=== PATIENT | female | born 1955 | race Caucasian/White ===

== ENCOUNTER 2018-11-10 06:11 | Inpatient (IN) | payer OTHER ==
[~2018-11-10] VITALS: Ht 160 cm; Wt 70.5 kg
[~2018-11-10 06:11] MED LIST: RINGERS SOLUTION,LACTATED 1,000 ML IV ONE
[2018-11-10] MEDS ORDERED: NAPR250T4 PO (07:30)
[2018-11-10] MEDS ORDERED: C,E,1CAP2 PO (07:30)
[2018-11-10] MEDS ORDERED: GLUC500T12 PO (07:30)
[2018-11-10] MEDS ORDERED: RINGERS SOLUTION,LACTATED 1,000 ML IV ONE ×2 (07:30→11:19)
[2018-11-10] MEDS ORDERED: BUPIVACAINE LIPOSOME/PF 1.3%-13.3MG/ML SUSPENSION 20 ML VIAL INJ ONE (09:00)
[2018-11-10] MEDS ORDERED: ONDANSETRON HCL 4 MG/2 ML VIAL IVP PRN ×3 (09:00→18:00)
[2018-11-10] MEDS ORDERED: TRANEXAMIC ACID 1,000 MG in DEXTROSE 5%-WATER 50 ML IV ONE (09:00)
[2018-11-10] MEDS ORDERED: HYDROmorphone 2 MG/ML SYRINGE IVP PRN (09:00)
[2018-11-10] MEDS ORDERED: CELECOXIB 200 MG CAPSULE PO ONE (09:00)
[2018-11-10] MEDS ORDERED: ZOLPIDEM TARTRATE 5 MG TABLET PO PRN ×2 (09:00→18:00)
[2018-11-10] MEDS ORDERED: FentaNYL CITRATE-PF 100 MCG/2 ML VIAL IVP PRN (09:15)
[2018-11-10] MEDS ORDERED: MEPERIDINE-PF 25 MG/ML VIAL IVP PRN (09:15)
[2018-11-10] MEDS: ACETAMINOPHEN 1000 MG/ISO-OSM 100 ML IV SCH ×3 (09:22→20:10)
[2018-11-10] MEDS ORDERED: SODIUM CHLORIDE 0.9% 10 ML ONE (09:46)
[2018-11-10] MEDS ORDERED: SODIUM CHLORIDE 0.9% 100 ML ONE (09:46)
[2018-11-10] MEDS ORDERED: SODIUM CL IRRIG SOLN BAG 3,000 ML IRRIG ONE (09:47)
[2018-11-10] MEDS ORDERED: BACITRACIN 50,000 UNITS/VIAL ONE (09:47)
[2018-11-10] MEDS ORDERED: DEXTROSE 5%-LACTATED RINGERS 1,000 ML IV SCH (11:58)
[2018-11-10] MEDS ORDERED: BENZOCAINE/MENTHOL LOZENGE PO PRN (12:00)
[2018-11-10] MEDS ORDERED: ZOLPIDEM TARTRATE 10 MG TABLET PO PRN (12:00)
[2018-11-10] MEDS ORDERED: BISACODYL 10 MG RECTAL RECTAL SUPPOSITORY PR PRN (12:00)
[2018-11-10] MEDS ORDERED: MAG HYDROX/AL HYDROX/SIMETH 30 ML SUSP UDCUP PO PRN (12:00)
[2018-11-10] MEDS ORDERED: BACITRACIN 28.4 GM OINTMENT TP PRN (12:00)
[2018-11-10] MEDS ORDERED: DiphenhydrAMINE HCL 50 MG/ML VIAL IVP PRN (12:00)
[2018-11-10] MEDS ORDERED: HYDROmorphone 2 MG/ML SYRINGE ONE (12:13)
[2018-11-10] MEDS: HYDROmorphone 2 MG/ML SYRINGE IVP PRN ×4 (12:15→12:58)
[2018-11-10 14:04] VITALS: BP 132/73
[2018-11-10] MEDS ORDERED: SODIUM CHLORIDE 0.9% 500 ML IV ONE (14:55)
[2018-11-10 15:37] VITALS: BP 130/74
[2018-11-10] MEDS ORDERED: MAGNESIUM OXIDE 400 MG TABLET PO PRN (18:00)
[2018-11-10] MEDS ORDERED: POTASSIUM CHLORIDE 20 MEQ ER TABLET PO PRN (18:00)
[2018-11-10] MEDS ORDERED: POTASSIUM CHL 10 MEQ/WATER 50 ML IV PRN (18:00)
[2018-11-10] MEDS ORDERED: 0.9% SODIUM CHLORIDE 10 ML SYRINGE IVP PRN (18:00)
[2018-11-10] MEDS ORDERED: MAGNESIUM SULFATE 4 GM/WATER 100 ML IV PRN (18:00)
[2018-11-10] MEDS ORDERED: MAGNESIUM SULFATE 2 GM/WATER 50 ML IV PRN (18:00)
[2018-11-10] MEDS: OxyCODONE HCL 5 MG IR TABLET PO PRN (19:16)
[2018-11-10] MEDS: PANTOPRAZOLE SODIUM 40 MG/VIAL IVP SCH (19:17)
[2018-11-10] MEDS: CeFAZolin 1 GM/DEXTROSE 50 ML IV SCH (19:17)
[2018-11-10 19:47] VITALS: BP 113/48
[2018-11-10] MEDS: OXYGEN THERAPY IH SCH (20:00)
[2018-11-10] MEDS: DOCUSATE SODIUM 100 MG CAPSULE PO SCH (20:09)
[2018-11-10] MEDS: CELECOXIB 200 MG CAPSULE PO SCH (20:10)
[2018-11-10] MEDS ORDERED: FAMOTIDINE 20 MG TABLET PO SCH (21:00)
[2018-11-10 23:45] VITALS: BP 100/49
[2018-11-11] MEDS: CeFAZolin 1 GM/DEXTROSE 50 ML IV SCH (04:26)
[2018-11-11] MEDS: ACETAMINOPHEN 1000 MG/ISO-OSM 100 ML IV SCH ×2 (04:26→12:04)
[2018-11-11 04:58] VITALS: BP 114/55
[2018-11-11] MEDS ORDERED: LIDOCAINE/PF 2% 5 ML VIAL IM ONE (05:50)
[2018-11-11] MEDS ORDERED: 0.9% SODIUM CHLORIDE 10 ML VIAL IVP ONE (05:50)
[2018-11-11] MEDS ORDERED: ONDANSETRON HCL 4 MG/2 ML VIAL IVP ONE (05:50)
[2018-11-11] MEDS ORDERED: SUCCINYLCHOLINE CHLORIDE 20 MG/ML 10 ML VIAL IVP ONE (05:50)
[2018-11-11] MEDS ORDERED: MIDAZOLAM HCL 2 MG/2 ML VIAL IVP ONE (05:50)
[2018-11-11] MEDS ORDERED: FentaNYL CITRATE-PF 100 MCG/2 ML VIAL IVP ONE (05:50)
[2018-11-11] MEDS ORDERED: PROPOFOL 1% 20 ML VIAL IVP ONE (05:50)
[2018-11-11 06:51] LABS: BASOPHILS % (AUTO) 0.5 % (0.0-2.0); HEMATOCRIT 30.2 % (36-46); HEMOGLOBIN 10.2 g/dL (12.0-16.0); LYMPHOCYTES # (AUTO) 2.1 K/uL (1.0-4.8); LYMPHOCYTES % (AUTO) 24.4 % (22.0-44.0); MEAN CORPUSCULAR HEMOGLOBIN 31.1 pg (26.0-34.0); MEAN CORPUSCULAR HGB CONC 33.7 G/dL (31.0-37.0); MEAN CORPUSCULAR VOLUME 92 fL (80-100); MONOCYTES # (AUTO) 0.7 K/uL (0.1-1.0); MONOCYTES % (AUTO) 8.6 % (2.0-9.0); NEUTROPHILS # (AUTO) 5.7 K/uL (1.8-7.7); NEUTROPHILS % (AUTO) 65.5 % (40.0-70.0); PLATELET COUNT (AUTO) 292 K/uL (150-450); RED BLOOD CELL COUNT(AUTO) 3.27 MIL/uL (4.00-5.20); RED CELL DISTRIBUTION WIDTH 12.9 % (11.5-14.5)
[2018-11-11 07:06] LABS: ANION GAP 3 mmol/L (8-16); CALCIUM, TOTAL 8.2 mg/dL (8.8-10.5); CARBON DIOXIDE 32 mmol/L (22-29); CHLORIDE 101 mmol/L (98-107); CREATININE 0.55 mg/dL (0.60-1.30); GLOMERULAR FILTR. RATE CALC > 60 mL/min (>60); GLUCOSE,RANDOM 107 mg/dL (70-110); POTASSIUM 3.8 mmol/L (3.5-5.1); SODIUM SERUM 136 mmol/L (136-145); UREA NITROGEN, BLOOD 7 mg/dL (7-18)
[2018-11-11 07:30] VITALS: BP 126/57
[2018-11-11] MEDS: PANTOPRAZOLE SODIUM 40 MG/VIAL IVP SCH (08:40)
[2018-11-11] MEDS: DOCUSATE SODIUM 100 MG CAPSULE PO SCH ×2 (08:41→20:19)
[2018-11-11] MEDS: CELECOXIB 200 MG CAPSULE PO SCH ×2 (08:41→20:18)
[2018-11-11] MEDS: OxyCODONE HCL 5 MG IR TABLET PO PRN (08:51)
[2018-11-11 11:44] VITALS: BP 113/57
[2018-11-11 15:45] VITALS: BP 123/57
[2018-11-11] MEDS: RIVAROXABAN 10 MG TABLET PO SCH (18:42)
[2018-11-11] MEDS: OxyCODONE HCL/ACETAMINOPHEN 10-325 MG TABLET PO PRN ×2 (18:42→20:18)
[2018-11-11 19:45] VITALS: BP 128/62
[2018-11-11] MEDS: OXYGEN THERAPY IH SCH (20:00)
[2018-11-11] MEDS: CYCLOBENZAPRINE HCL 10 MG TABLET PO PRN (20:19)
[2018-11-12] MEDS: OxyCODONE HCL/ACETAMINOPHEN 10-325 MG TABLET PO PRN ×4 (03:29→15:07)
[2018-11-12] MEDS: CYCLOBENZAPRINE HCL 10 MG TABLET PO PRN (03:30)
[2018-11-12 04:36] VITALS: BP 115/55
[2018-11-12 08:01] VITALS: BP 122/58
[2018-11-12] MEDS: CELECOXIB 200 MG CAPSULE PO SCH (08:34)
[2018-11-12] MEDS: DOCUSATE SODIUM 100 MG CAPSULE PO SCH (08:34)
[2018-11-12] MEDS: PANTOPRAZOLE SODIUM 40 MG/VIAL IVP SCH (08:34)
[2018-11-12] MEDS ORDERED: RIVA10 PO (11:29)
[2018-11-12] MEDS ORDERED: OXYC-43 PO (11:29)
[2018-11-12] MEDS ORDERED: DSS100 PO (11:31)
[2018-11-12 11:42] VITALS: BP 121/53
[2018-11-12 15:08] VITALS: BP 133/55
[2018-11-12] MEDS: RIVAROXABAN 10 MG TABLET PO SCH (17:19)
== END 2018-11-12 18:00 | disposition home health service (06) | DRG 470 ==
LOC: 4E 06:11
PROVIDERS: ADMIT Orthopaedic Surgery; ATTEND Orthopaedic Surgery
PROC: 3E0T3BZ Introduction of Anesthetic Agent into Peripheral Nerves and Plexi, Percutaneous Approach (ICD-10-PCS; 2018-11-10)
PROC: 0SRD0J9 Replacement of Left Knee Joint with Synthetic Substitute, Cemented, Open Approach (ICD-10-PCS; principal; 2018-11-10 10:00)
DX: M17.12 Unilateral primary osteoarthritis, left knee (principal); E78.00 Pure hypercholesterolemia, unspecified; E78.5 Hyperlipidemia, unspecified; Z88.5 Allergy status to narcotic agent; Z79.899 Other long term (current) drug therapy
CPT/HCPCS: 83735; 87081; 88300; 97110; 97116; 97161; 97165; 97530; 97535; C9113; C9290; G0238; J0131; J0330; J0690; J1170; J2250; J2405; J2704; J3010; J3490; J7040; J7050; J7060; J7120